=== PATIENT | female | born 1980 | race Caucasian/White ===

== ENCOUNTER 2017-04-04 17:56 | Emergency (ER) | payer BC, OTHER ==
[2017-04-04 18:05] VITALS: BP 90/62
--- NOTE | 2017-04-04 20:10 | UC ---
Lower Extremity/Ankle HPI - HPI Summary HPI Summary: KICKED HUSBANDS WEIGHT BENCH LAST NIGHT. RIGHT SECOND TOE WITH BRUISING AND TENDERNESS. - History of Current Complaint Chief Complaint: UCLowerExtremity Stated Complaint: TOE INJURY Time Seen by Provider: 04/04/17 19:55 Hx Obtained From: Patient Hx Last Menstrual Period: 03/01 Onset/Duration: Sudden Onset, Lasting Hours, Still Present Severity Initially: Moderate Severity Currently: Moderate Pain Intensity: 4 Pain Scale Used: 0-10 Numeric Aggravating Factor(s): Standing, Ambulation Alleviating Factor(s): Rest Able to Bear Weight: Yes - Allergies/Home Medications Allergies/Adverse Reactions: Allergies Allergy/AdvReac Type Severity Reaction Status Date / Time Acetaminophen AdvReac See Comment Verified 12/12/13 11:22 [From Hydrocodone W/Acetaminophen] Hydrocodone AdvReac See Comment Verified 12/12/13 11:22 [From Hydrocodone W/Acetaminophen] Oxycodone AdvReac See Comment Verified 12/12/13 11:23 [From Oxycodone W/Acetaminophen] cashews Allergy Intermediate Hives Uncoded 10/15/13 22:03 barrera Allergy Intermediate Hives Uncoded 10/15/13 22:03 grass Allergy Hives Uncoded 04/04/17 18:05 PMH/Surg Hx/FS Hx/Imm Hx - Additional Past Medical History Additional PMH: SEASONAL ALLERGIES - Surgical History Surgical History: Yes Surgery Procedure, Year, and Place: - Family History Known Family History: Positive: Hypertension - Social History Alcohol Use: Occasionally Substance Use Type: None Smoking Status (MU): Never Smoked Tobacco - Immunization History Most Recent Influenza Vaccination: Aug 2013 Most Recent Tetanus Shot: 10/01/13 Most Recent Pneumonia Vaccination: N/A Review of Systems Constitutional: Negative Skin: Bruising Respiratory: Negative Cardiovascular: Negative Gastrointestinal: Negative Musculoskeletal: Arthralgia, Decreased ROM, Edema All Other Systems Reviewed And Are Negative: Yes Physical Exam Triage Information Reviewed: Yes Appearance: Well-Appearing, No Pain Distress, Well-Nourished Vital Signs: Initial Vital Signs Temp 98.0 F 04/04/17 18:00 Pulse 60 04/04/17 18:00 Resp 18 04/04/17 18:00 BP 90/62 04/04/17 18:00 Pulse Ox 98 04/04/17 18:00 Vital Signs Reviewed: Yes Eyes: Positive: Conjunctiva Clear ENT: Positive: Hearing grossly normal Neck: Positive: Supple Respiratory: Positive: No respiratory distress, No accessory muscle use Cardiovascular: Positive: Pulses Normal Abdomen Description: Positive: Soft Musculoskeletal: Positive: ROM Limited @ - RIGHT 2ND TOE, Edema @ - RIGHT 2ND TOE, Other: - TTP RIGHT 2ND TOE MTP AND PROXIMALLY Neurological: Positive: Alert Psychological: Positive: Age Appropriate Behavior Skin: Positive: Other - BRUISING RIGHT 2ND TOE Diagnostics - Radiology RIGHT 2ND TOE Xray Interpretation: No Acute Changes Radiology Interpretation Completed By: Radiologist Lower Extremity Course/Dx - Differential Dx/Diagnosis Provider Diagnoses: RIGHT TOE CONTUSION Discharge - Discharge Plan Condition: Stable Disposition: HOME Patient Education Materials: Contusion in Adults (ED) Referrals: Ebenezer Herrera MD [Primary Care Provider] - If Needed Additional Instructions: XRAY NEGATIVE FOR FRACTURE OR DISLOCATION. POST OP SHOE FOR COMFORT. OTC MEDS FOR PAIN. FOLLOW-UP PCP IF NEEDED.
--- NOTE | 2017-04-04 20:31 | RAD ---
INDICATION: Right second toe injury COMPARISON: None TECHNIQUE: AP, lateral, and oblique views were obtained. FINDINGS: The bony structures, joint spaces, and soft tissues are normal for age. IMPRESSION: NEGATIVE EXAMINATION.
== END 2017-04-04 21:10 | disposition home or self-care (01) ==
LOC: UCEAST 17:56
DX: S90.121A Contusion of right lesser toe(s) without damage to nail, initial encounter (principal); W22.09XA Striking against other stationary object, initial encounter
CPT/HCPCS: 99212; G0463

== ENCOUNTER 2018-01-27 13:03 | Inpatient (IN) | payer BC, OTHER ==
--- NOTE | 2018-01-27 13:38 | HP ---
General Information - General Information Maternal Age: 37 Grav: 3 Para: 1 SAB: 1 IEA: 0 Estimated Due Date: 01/31/18 Determined By: LMP Gestational Age in Weeks and Days: 39 Weeks and 3 Days Maternal Blood Type and Rh: O Positive - Results this Serology/RPR Result: Non-Reactive Rubella Result: Immune HBsAg Result: Negative HIV Result: Negative GBS Culture Result: Negative Past Medical History Delivery History: Hx C/Section, See Records Pertinent Past Medical History: See Records Pertinent Past Surgical History: See Records Pertinent Family History: See Records - Antepartal Records Antepartal Records: Reviewed, Complicated by: - AMA, h/o Review of Systems Constitutional: Uncomfortable CV Complaint: No Respiratory: Shortness of Breath: No Gastrointestinal: No Nausea/Vomiting Genitourinary: Leaking Fluid - ? occ overnight, more this AM, No Dysuria Musculoskeletal: No Complaint Neurological: No Headache Movement: Normal Exam Allergies/Adverse Reactions: Allergies MS Acetaminophen [From Hydrocodone W/Acetaminophen] Adverse Reaction (Verified 01/27/18 13:27) See Comment VERY LONG LASTING EFFECTS MS Hydrocodone [From Hydrocodone W/Acetaminophen] Adverse Reaction (Verified 13:27) See Comment VERY LONG LASTING EFFECTS MS Oxycodone [From Oxycodone W/Acetaminophen] Adverse Reaction (Verified 13:27) See Comment VERY LONG LASTING cashews Allergy (Intermediate, Uncoded 01/27/18 13:27) Hives barrera Allergy (Intermediate, Uncoded 01/27/18 13:27) Hives grass Allergy (Uncoded 01/27/18 13:27) Hives 127/83, 97.3, P92 - Measurements Height: 5 ft 7 in Weight: 212 lb Weight in lbs: 212 Body Mass Index (BMI): 33.2 Pre- Weight: 174 lb Weight Gained This : 38 lbs and 0 ozs - Exam Abdomen: No Upper Quadrant Pain Heart: Normal Rhythm/Heart Sounds Lungs: Clear Bilaterally - Cervical Exam 3cm/100%/-1, vertex - Abdominal Exam Abdomen Exam: Fundal Height Consistent with Dates - Membranes Membrane Status: SROM - Ultrasound/Biophysical Profile Ultrasound Status: Not Done EFM Findings - External Monitor Findings Baseline Heart Rate: 150 External Monitor Findings: Accelerations Present, No Pattern of Variable or Late Decelerations, Variability Moderate Contractions: Strong, 45-90 Seconds Contraction Frequency: Q1.5-3 min Assessment/Plan - Reason for Visit Reason for Visit: 39+3 wks with h/o C/S for breech, desires TOLAC. Extensively counseled during the regarding risks of and she desires to proceed. Now also desires epidural for analgesia. FHT very reassuring, no concerns at this time. - Obstetrical Risk Factors Obstetrical Risk Factors: Previous C/Section in Labor - Plan Plan: Active Labor Plan Comment: Expectant mgmt of labor, routine labs, IV getting placed. Anesthesia constacted and coming in. - Date/Time of Admission Date of Admission: 01/27/18 Time of Admission: 13:41
[2018-01-27] MEDS ORDERED: OBEPIDURAL* 250 ML EPIDURAL ONE (13:44)
[2018-01-27 13:55] LABS: ABS Basophils 0.1 10^3/ul (0-0.2); ABS Eosinophils 0.1 10^3/ul (0-0.6); ABS Lymphocytes 1.6 10^3/ul (1.0-4.8); ABS Neutrophils 10.8 10^3/ul (1.5-7.7); ABS Nucleated RBC 0 10^3/ul; Eosinophil % 0.4 % (0-6); Hematocrit 38 % (35-47); Hemoglobin 13.1 g/dl (12.0-16.0); Lymphocyte % 11.6 % (25-47); Mean Corpuscular HGB Conc 35 g/dl (31-36); Mean Corpuscular Hemoglobin 32 pg (27-31); Mean Corpuscular Volume 93 fL (80-97); Nucleated Red Blood Cells % 0; Platelet Count 165 10^3/ul (150-450); Red Cell Distribution Width 13 % (10.5-15); White Blood Count 13.5 10^3/ul (3.5-10.8)
[2018-01-27] MEDS ORDERED: fentaNYL* 50 MCG/ML 2 ML VIAL (100 MCG VIAL) ONE ×2 (13:59→16:56)
[2018-01-27] MEDS ORDERED: Sodium Citrate/Citric Acid* 15 ML UDC PO PRN (14:43)
[2018-01-27] MEDS ORDERED: Famotidine TAB* 20 MG PO PRN (14:43)
[2018-01-27] MEDS ORDERED: Phenylephrine IV* 40 MCG/ML 10 ML SYRINGE IV PUSH PRN ×2 (14:43)
[2018-01-27] MEDS ORDERED: OBEPIDURAL* 250 ML EPIDURAL SCH (15:00)
[2018-01-27] MEDS ORDERED: Sodium Citrate/Citric Acid* 15 ML UDC ONE (16:18)
[2018-01-27] MEDS ORDERED: Succinylcholine* 20 MG/ML 10 ML VIAL ONE (16:23)
[2018-01-27] MEDS ORDERED: Lidocaine 2% PF * 5 ML VIAL ONE (16:23)
[2018-01-27] MEDS ORDERED: Propofol* 10 MG/ML 20 ML BTL IV PUSH ONE (16:23)
[2018-01-27] MEDS ORDERED: OXYTOCIN* 10 UNITS/ML 1 ML VIAL ONE (16:24)
[2018-01-27] MEDS ORDERED: Morphine PF AMP (0.5MG/ML)* 5 MG/10 ML AMP ONE (16:25)
[2018-01-27] MEDS ORDERED: Bupivacaine-MPF SPINAL* 7.5 MG/2 ML AMP ONE (16:25)
[2018-01-27] MEDS ORDERED: fentaNYL* 50 MCG/ML 5 ML VIAL (250 MCG VIAL) ONE (16:37)
[2018-01-27] MEDS ORDERED: Midazolam* 1 MG/ML 5 ML VIAL (5 MG) ONE (16:37)
[2018-01-27] MEDS ORDERED: Lidocaine 2% PF* 10 ML AMP ONE (17:00)
[2018-01-27] MEDS ORDERED: ceFOXitin 2 GM IVPREMIX* 2 GM/50 ML BAG IVPB ONE (17:00)
[2018-01-27] MEDS ORDERED: Phenylephrine IV* 40 MCG/ML 10 ML SYRINGE ONE (17:01)
[2018-01-27] MEDS ORDERED: Ondansetron INJ* 2 MG/ML VIAL ONE (17:01)
[2018-01-27] MEDS ORDERED: Ketorolac INJ* 30 MG/ML 1 ML VIAL ONE (17:01)
[2018-01-27] MEDS ORDERED: Chloroprocaine 3%* 20 ML VIAL ONE (17:01)
[2018-01-27] MEDS ORDERED: ceFOXitin 2 GM IVPREMIX* 2 GM/50 ML BAG ONE (17:02)
[2018-01-27] MEDS ORDERED: Methylergonovine INJ* 0.2 MG/ML 1ML AMP ONE (17:17)
[2018-01-27] MEDS ORDERED: Metoclopramide IV* 5 MG/ML 2 ML VIAL ONE (17:27)
[2018-01-27] MEDS ORDERED: PROCHLORPERAZINE INJ 5 MG/ML 2 ML VIAL ONE (17:27)
[2018-01-27] MEDS ORDERED: fentaNYL* 50 MCG/ML 2 ML VIAL (100 MCG VIAL) IV PRN (18:11)
[2018-01-27] MEDS ORDERED: Ondansetron INJ* 2 MG/ML VIAL IV PRN ×2 (18:11→18:12)
[2018-01-27] MEDS ORDERED: Naloxone* 0.4 MG/ML 1 ML VIAL IV PRN ×2 (18:11→18:12)
[2018-01-27] MEDS ORDERED: HYDROcodone/ACETAMIN 5-325 MG* 1 TAB PO PRN (18:12)
[2018-01-27] MEDS ORDERED: Nalbuphine* 20 MG/ML 1 ML VIAL IV PRN (18:12)
[2018-01-27] MEDS ORDERED: Witch Hazel PAD* JAR TOPICAL PRN (18:21)
[2018-01-27 18:36] LABS: Hematocrit 34 % (35-47); Hemoglobin 11.6 g/dl (12.0-16.0); Mean Corpuscular HGB Conc 34 g/dl (31-36); Mean Corpuscular Hemoglobin 32 pg (27-31); Mean Corpuscular Volume 93 fL (80-97); Mean Platelet Volume 9.1 um3 (7.4-10.4); Platelet Count 153 10^3/ul (150-450); Red Blood Count 3.68 10^6/ul (4.0-5.4); Red Cell Distribution Width 13 % (10.5-15); White Blood Count 16.7 10^3/ul (3.5-10.8)
[2018-01-27] MEDS ORDERED: Methylergonovine INJ* 0.2 MG/ML 1ML AMP IM ONE (18:36)
[2018-01-27 19:04] LABS: INR 0.88 (0.77-1.02)
[2018-01-27] MEDS ORDERED: Oxytocin in LR* 20 UNITS/1,000 ML BAG IVPB ONE (19:19)
[2018-01-27] MEDS: Simethicone TAB* 80 MG TAB.CHEW PO SCH (23:22)
[2018-01-27] MEDS: Docusate CAP* 100 MG PO SCH (23:22)
[2018-01-28] MEDS: Ibuprofen TAB* 600 MG PO SCH ×4 (01:57→20:13)
--- NOTE | 2018-01-28 02:05 | OP ---
DATE OF OPERATION: 01/27/18 - ROOM #116 DATE OF : 80 SURGEON: Collin Guevara MD [employer] SALESPERSON: Yumiko Garcia LM ANESTHESIOLOGIST: Dr. Estrada. ANESTHESIA: Epidural. PRE-OP DIAGNOSIS: 39 plus 3 weeks gestation with history of previous section with category 3 heart tracing. POST-OP DIAGNOSES: 1. 39 plus 3 weeks gestation with history of previous section with category 3 heart tracing. 2. Placental abruption. OPERATIVE PROCEDURE: Repeat low transverse section. ESTIMATED BLOOD LOSS: 1000 cc. URINE OUTPUT: 600 cc. IV FLUIDS: 1800 cc lactated Ringer's. INDICATIONS: This patient was a 37-year-old 3, para 1 with a history of a prior section for breech presentation. The patient presented at 39 plus 3 weeks gestation in active labor and desired to proceed with a trial of labor. On presentation, the heart tracing was very reassuring and her contractions were about every 2 minutes. Her cervix was 3 cm and she desired an epidural. After the epidural, she was comfortable and the heart tracing still appeared to be reassuring. However, within a couple of hours, the heart tracing was notable for progressively deepening variable decelerations until there was a sharp deceleration into the 50s which remained there for at least 2 to 3 minutes. The cervical examination at that time was 9 cm dilation. Considering the very concerning change in the heart tracing , the decision was made to proceed to the operating room for an emergent section. The patient and her fully agreed and so the patient was brought to the operating room and Anesthesia and academic adviser were called. A scalp electrode was placed on the fetus prior to being brought to the OR. During observation in the operating room, the heart tracing returned to the 130s with moderate variability. There were still occasional small variable decelerations. Considering the heart tracing had become more reassuring, time was allowed for the epidural to become adequate for surgery. FINDINGS: Normal appearing uterus, fallopian tubes and ovaries. Fairly large amount of blood clot within the uterine cavity on creation of the hysterotomy. The was in the occiput posterior position. Delivery was productive of a 7 pound 14 ounce female infant with Apgars of 9 and 10. COMPLICATIONS: None. DESCRIPTION OF PROCEDURE: The risks, benefits, and alternatives were described to the patient, and informed consent was obtained. The patient was taken to the operating room with IV running, where epidural anesthesia was induced and found to be adequate. The patient was prepped and draped in normal sterile fashion in the dorsal supine position with a leftward tilt. A Pfannenstiel skin incision was made with a scalpel through the patient's previous incision. This was carried down to the underlying fascia using the scalpel. The fascia was scored in the midline, and the incision was extended using Sears scissors. The fascia was dissected off the underlying rectus muscles using blunt and sharp dissection. The rectus muscles were in the midline using dissection with a Melvina clamp. The peritoneum was then entered bluntly. A bladder blade was placed. A bladder flap was created sharply using Metzenbaum scissors. A low transverse uterine incision was then made with the scalpel. This was carried down to the amniotic membranes. The membranes were then ruptured, productive of clear fluid. The uterine incision was extended using blunt traction. The head was elevated to the level of the incision, and, with fundal pressure, the head delivered without difficulty. The shoulders then were also both delivered and the body followed. The had excellent tone and cried immediately on delivery. The cord was doubly clamped and cut. The infant was then handed to the awaiting field sales representative. Cord blood was collected. The placenta was delivered with manual extraction. The uterus was then exteriorized and cleared of all clots and debris. The uterine incision was then reapproximated using 0 Polysorb in a running-locked fashion. A second layer of imbricating 0 Polysorb sutures was then also placed for good hemostasis. The posterior cul-de-sac was irrigated with saline. The uterus was then returned to the abdomen. The incision was reinspected and still noted to be hemostatic. The peritoneum was closed with 2-0 chromic in a running fashion. The fascia was closed with 0 Polysorb in a running fashion. The subcutaneous tissues were copiously irrigated and made hemostatic using the Bovie. The subcutaneous tissues were then reapproximated using 2-0 chromic in interrupted sutures. The skin was then closed with . A sterile bandage was then placed over the incision. The patient tolerated the procedure well. Sponge, lap, and needle counts were correct x2. [id number]/[facility] #: [id number] [facility]
[2018-01-28 07:16] LABS: ABS Basophils 0 10^3/ul (0-0.2); ABS Eosinophils 0 10^3/ul (0-0.6); ABS Neutrophils 9.8 10^3/ul (1.5-7.7); ABS Nucleated RBC 0 10^3/ul; Eosinophil % 0.3 % (0-6); Hematocrit 28 % (35-47); Hemoglobin 9.9 g/dl (12.0-16.0); Lymphocyte % 8.8 % (25-47); Mean Corpuscular HGB Conc 35 g/dl (31-36); Mean Corpuscular Hemoglobin 32 pg (27-31); Mean Corpuscular Volume 92 fL (80-97); Mean Platelet Volume 9.5 um3 (7.4-10.4); Nucleated Red Blood Cells % 0; Platelet Count 128 10^3/ul (150-450); Red Blood Count 3.06 10^6/ul (4.0-5.4); Red Cell Distribution Width 13 % (10.5-15); White Blood Count 11.9 10^3/ul (3.5-10.8)
[2018-01-28] MEDS: Simethicone TAB* 80 MG TAB.CHEW PO SCH ×4 (08:07→20:13)
[2018-01-28] MEDS: Docusate CAP* 100 MG PO SCH ×3 (08:07→20:12)
[2018-01-28] MEDS ORDERED: oxyCODONE/Acetamin 5/325 MG* TAB PO PRN (10:12)
[2018-01-28] MEDS: oxyCODONE/Acetamin 5/325 MG* TAB PO PRN ×3 (12:03→22:07)
--- NOTE | 2018-01-28 18:08 | PTEDU ---
Patient Name: FELI HORTA FELI HORTA selected video: BBOB: Nurturing Your Gorgeous &Growing Baby by to view on 01/28/2018 at 6:07:44 PM from [email or web address]
--- NOTE | 2018-01-28 18:36 | PTEDU ---
Patient Name: FELI HORTA FELI HORTA selected video: BBOB: Bonding Through Infant Massage to view on 01/28/2018 at 6:35:57 PM from [email or web address]
--- NOTE | 2018-01-28 19:25 | PTEDU ---
Patient Name: FELI HORTA FELI HORTA selected video: Follow Me Mum: The Babin to Successful to view on 018 at 7:24:32 PM from [email or web address]
[2018-01-29] MEDS: Ibuprofen TAB* 600 MG PO SCH ×6 (02:04→19:38)
[2018-01-29] MEDS: Simethicone TAB* 80 MG TAB.CHEW PO SCH ×4 (09:08→19:38)
[2018-01-29] MEDS: Docusate CAP* 100 MG PO SCH ×3 (09:08→19:38)
[2018-01-29] MEDS ORDERED: Acetaminophen TAB* 325 MG ONE ×2 (15:00→19:28)
[2018-01-29] MEDS: Acetaminophen TAB* 325 MG PO PRN (23:28)
[2018-01-30] MEDS: Ibuprofen TAB* 600 MG PO SCH ×3 (01:22→14:54)
[2018-01-30] MEDS: Acetaminophen TAB* 325 MG PO PRN ×3 (03:28→13:03)
[2018-01-30] MEDS: Simethicone TAB* 80 MG TAB.CHEW PO SCH ×2 (07:51→13:02)
[2018-01-30] MEDS: Docusate CAP* 100 MG PO SCH ×2 (07:51→14:53)
[2018-01-30 07:59] VITALS: BP 102/64
[2018-01-30] MEDS ORDERED: Ferrous Sulfate TAB* 325 MG PO ONE (11:20)
== END 2018-01-30 16:18 | disposition home or self-care (01) | DRG 540 ==
LOC: MCHOBOUT 13:03 → MCHOB 13:18
PROVIDERS: ADMIT Obstetrics & Gynecology; ATTEND Obstetrics & Gynecology
PROC: 10D00Z1 Extraction of Products of Conception, Low, Open Approach (ICD-10-PCS; principal; 2018-01-27 16:25)
DX: O76 Abnormality in fetal heart rate and rhythm complicating labor and delivery (principal); O45.93 Premature separation of placenta, unspecified, third trimester; O34.211 Maternal care for low transverse scar from previous cesarean delivery; O99.344 Other mental disorders complicating childbirth; F41.8 Other specified anxiety disorders; O32.8XX0 Maternal care for other malpresentation of fetus, not applicable or unspecified; O90.81 Anemia of the puerperium; D64.9 Anemia, unspecified; Z3A.39 39 weeks gestation of pregnancy; Z37.0 Single live birth
CPT/HCPCS: 36415; 85025; 85027; 85384; 85610; 85730; 86850; 86900; 86901; 88307; A9270-GY; J0330; J0694; J0780; J1885; J2001; J2210; J2250; J2400; J2405; J2590; J2704; J2765; J3010

== ENCOUNTER 2019-07-08 09:51 | Emergency (ER) | payer BC, OTHER ==
[2019-07-08 10:01] VITALS: BP 123/69
--- NOTE | 2019-07-08 10:15 | UC ---
Lower Extremity/Ankle HPI - HPI Summary HPI Summary: Patient presents to urgent care for evaluation of her left lower extremity. Patient's a 38-year-old female with a Mirena ring. Patient was drove an 8 [address] ride back from [place] yesterday. Last evening patient noticed some discomfort in her left lateral distal calf. Patient states it felt like a bad cramp. Patient states she tried to stretch it known is able to get relief. Patient states it continued to be uncomfortable it's morning. Patient spoke to the nurse line for her health insurance was advised to be evaluated for DVT. Patient states today while walking about seems like it is improved slightly. Patient states it just feels uncomfortable and tight. Patient has any paresthesias. No color or temperature change of her foot. Patient did not take any analgesia. Patient without a history of DVTs. No family history of DVT or clotting disorders. Patient's medications reviewed this visit. - History of Current Complaint Chief Complaint: UCLowerExtremity Stated Complaint: LEG PAIN Time Seen by Provider: 07/08/19 10:04 Hx Obtained From: Patient Hx Last Menstrual Period: iud ?: No Onset/Duration: Gradual Onset Severity Initially: Mild Severity Currently: Mild Pain Intensity: 3 Pain Scale Used: 0-10 Numeric - Allergies/Home Medications Allergies/Adverse Reactions: Allergies Allergy/AdvReac Type Severity Reaction Status Date / Time hydrocodone [From Vicodin] Allergy Mild Nausea Verified 07/08/19 10:02 latex Allergy Rash Verified 07/08/19 10:02 cashews Allergy Intermediate Hives Uncoded 07/08/19 10:02 barrera Allergy Intermediate Hives Uncoded 07/08/19 10:02 grass Allergy Hives Uncoded 07/08/19 10:02 Home Medications: Home Medications NK [No Home Medications Reported] 07/08/19 [History Confirmed 07/08/19] PMH/Surg Hx/FS Hx/Imm Hx Previously Healthy: Yes - Surgical History Surgical History: Yes Surgery Procedure, Year, and Place: - Family History Known Family History: Positive: Hypertension, Other - no clotting hx, Non- Contributory - Social History Occupation: Employed Full-time Lives: With Family Alcohol Use: Rare Substance Use Type: None Smoking Status (MU): Never Smoked Tobacco - Immunization History Most Recent Influenza Vaccination: received at [facility] [id number] Most Recent Tetanus Shot: 10/01/13 Most Recent Pneumonia Vaccination: N/A Review of Systems All Other Systems Reviewed And Are Negative: Yes Constitutional: Positive: Negative Skin: Positive: Negative Musculoskeletal: Positive: Other: - LLE pain Is Patient Immunocompromised?: No Physical Exam - Summary Physical Exam Summary: Vital Signs Reviewed: Yes A+Ox3, no distress Eyes: Conjunctiva Clear ENT: Hearing grossly normal neck: supple Respiratory: Positive: No respiratory distress, No accessory muscle use Cardiovascular: skin color reflect adequate perfusion 2+ DP, PT CBT <2 sec , foot warm Musculoskeletal Exam: CARRERO x 4 without difficulty, ambulatory without difficulty + flex/ext LE, + flex/ext ankle with discomfort distal anterior, lateral LE no edema. + focal pain distal anterior, lateral LE approx 4in prox to malleolus Neurological: Positive: Alert, ambulatory without difficulty Psychological: Positive: Normal Response To examiner Skin: Positive: no rash, no ecchymosis, no warmth, edema, erythema Triage Information Reviewed: Yes Vital Signs: Initial Vital Signs Temp 98 F 07/08/19 09:58 Pulse 79 07/08/19 09:58 Resp 18 07/08/19 09:58 BP 123/69 07/08/19 09:58 Pulse Ox 100 07/08/19 09:58 Diagnostics - Radiology No standard instances Radiology Interpretation Completed By: Radiologist Lower Extremity Course/Dx - Course Course Of Treatment: Patient presents to urgent care for evaluation of left lower extremity cramping and pain. Patient recently on a long car ride. Patient does have Mirena ring. Patient spoke to her health insurance nurse call line and was advised to come to rule out a DVT. Patient's vital signs are stable. Patient with point tenderness distal anterior lateral aspect of the left lower extremity. No larisa calf pain. Patient with good range of motion. Distal CSM intact. We'll check an ultrasound for DVT. Low suspicion. Patient declined offer for Motrin or Advil. Discussed with patient could be a sprain or strain. Patient states comfort agreement with plan. Offered patient work note which she will accept. - Differential Dx/Diagnosis Provider Diagnosis: Acute pain of left lower extremity Discharge ED - Sign-Out/Discharge Documenting (check all that apply): Patient Departure All imaging exams completed and their final reports reviewed: Yes - Discharge Plan Condition: Stable Disposition: HOME Patient Education Materials: Leg Pain (ED) Forms: *Work Release Referrals: Ebenezer Herrera MD [Primary Care Provider] - Additional Instructions: As discussed, the ultrasound does not show signs of a blood clot. The doctor that evaluated you suspects this is a muscle strain or inflammation of the tendon.The following is recommended: - apply ice, wrapped in a towel, 20 minutes at a time. Also recommended. She will alternate - Okay to alternate ibuprofen (Advil, Motrin) and Tylenol (acetaminophen) every 3 hours for pain or fever. Take with food. Do NOT take for more than 4-5 days. - wear shoes with food support - no heals - until your pain is resolved - contact your doctor to schedule a follow-up appointment if your symptoms persist - Billing Disposition and Condition Condition: STABLE Disposition: Home - Attestation Statements Provider Attestation: I was available for consult. This patient was seen by the JORY. The patient was not presented to, seen by, or examined by me. -Robson
== END 2019-07-08 11:42 | disposition home or self-care (01) ==
LOC: UCEAST 09:51
DX: M79.662 Pain in left lower leg (principal); Z88.5 Allergy status to narcotic agent; Z91.040 Latex allergy status
CPT/HCPCS: 99201; G0463